=== PATIENT | female | born 1950 | race Caucasian/White ===

== ENCOUNTER → 2016-11-30 | Outpatient (CLI) | payer OTHER ==
[~2016-11-30] MED LIST: ASPIRIN81 M2 PO; AVALIDE; AVALIDE 150-12.1 TAB PO; AVAPRO PO; BAYER ASPIRIN325 M1 PO; CLINDAMYCIN HC300 MG PO; GABAPENTIN300 MG PO; HCTZ PO; HYDROCHLOROTH12.5 MG PO; HYDROCODON-ACE1 EAC9 PO; LEXAPRO PO; LISINOPRIL10 MG PO; LODINE PO; MULTIPLE VITAMI1 T11 PO; OSCAL D PO; PHENERGAN25 M1 PO; PROTONIX PO; SYNTHROID0.1 MG PO; TUMERIC PO
--- NOTE | ~2016-11-30 | US128 ---
[id number] [facility] [address]. [place], [place] [address] [id number] O MR#: [id number] Acc #: [id number] NAME: YINKA CUNNINGHAM : 1950 SEX: F STUDY DATE/TIME: 11/30/2016 13:40 UNIT: [facility] ROOM: STUDY DESCRIPTION: Thyroid Attending Physician: Kermit Last M.D. Referring Physician: Kermit Last M.D. Ordering Physician: Kermit Last M.D. Primary Care Physician: Van Escalante M.D. MEDICAL IMAGING REPORT This report is preliminary unless electronic signature is present EXAM Thyroid ultrasound. DATE OF EXAM 11/30/2016 HISTORY 66-year-old female with malignant neoplasm of the thyroid gland. Small cell B-cell lymphoma. Followup. Thyroidectomy December 2015. COMPARISON Thyroid ultrasound 09/16/2015. Nuclear medicine, I-131 whole body scan, 03/30/2016 and 11/02/2016. FINDINGS Targeted sonographic images was performed of the neck. No residual or recurrent soft tissue mass is seen within the vicinity of the thyroid resection bed. No pathologically enlarged lymph nodes are identified. IMPRESSION No evidence of local disease recurrence in the neck in this patient with a history of thyroid cancer. Thyroidectomy. Dictated by... Elaine Triplett M.D. THIS IS AN ELECTRONICALLY VERIFIED REPORT Elaine Triplett M.D. at 12/02/2016 9:14 AM NIRMAL/jaime TD: 12/01/2016 18:23 JOB #: [id number] MEDICAL IMAGING REPORT COPY
== END | disposition home or self-care (01) ==
LOC: CGUS 13:07
DX: Z08 Encounter for follow-up examination after completed treatment for malignant neoplasm (principal); C83.01 Small cell B-cell lymphoma, lymph nodes of head, face, and neck; E89.0 Postprocedural hypothyroidism; Z85.850 Personal history of malignant neoplasm of thyroid
CPT/HCPCS: 76536